=== PATIENT | male | born 1990 | race Caucasian/White ===

== ENCOUNTER 2016-09-09 19:58 | Emergency (ER) | payer OTHER | END 2016-09-09 22:32 | disposition home or self-care (01) | LOC: ER 19:58 | DX: J40 Bronchitis, not specified as acute or chronic (principal); F17.210 Nicotine dependence, cigarettes, uncomplicated | CPT/HCPCS: 71250; 96372; 99284-25 ==

== ENCOUNTER 2017-01-03 21:26 | Emergency (ER) | payer OTHER | END 2017-01-04 00:27 | disposition home or self-care (01) | LOC: ER 21:26 | DX: K02.9 Dental caries, unspecified (principal); K08.89 Other specified disorders of teeth and supporting structures; G89.4 Chronic pain syndrome; F17.210 Nicotine dependence, cigarettes, uncomplicated; Z79.899 Other long term (current) drug therapy; Z88.5 Allergy status to narcotic agent | CPT/HCPCS: 96372; 99282-25 ==